=== PATIENT | female | born 1995 | race Asian ===

== ENCOUNTER 2024-02-20 08:32 | Emergency (ER) | payer OTHER, SELFPAY ==
--- NOTE | 2024-02-20 08:56 | ED.GENADULT ---
HPI - General Adult General Chief complaint: Urogenital-Female Stated complaint: Uti Symptoms Source: patient, RN notes reviewed and old records reviewed Mode of arrival: ambulatory Limitations: no limitations History of Present Illness HPI narrative: 28-year-old female presents to [facility] with complaints lower abdominal pain and urinary odor that started 3 weeks ago. Patient denies any other symptoms. Patient denies vaginal discharge. Patient denies concerns for STDs. Related Data Home Medications Medication Instructions Recorded Confirmed buspirone 7.5 mg tablet 7.5 mg PO BID 08/31/23 08/31/23 clindamycin phosphate 1 % topical 1 applic topical DAILY 08/31/23 08/31/23 solution dextroamphetamine-amphetamine ER 10 mg PO DAILY 08/31/23 08/31/23 10 mg 24hr capsule,extend release ergocalciferol (vitamin D2) 1,250 1,250 mcg PO WEEKLY 08/31/23 08/31/23 mcg (50,000 unit) capsule levonorgestrel-ethinyl estradiol 1 tablet PO DAILY 08/31/23 08/31/23 0.1 mg-20 mcg tablet (Vienva) tretinoin 0.025 % topical cream 1 applic topical QHS 08/31/23 08/31/23 Allergies Allergy/AdvReac Type Severity Reaction Status Date / Time No Known Allergies Allergy Unverified 08/31/23 13:28 Review of Systems Constitutional: Constitutional: Reports no additional constitutional complaints, Denies body ache(s), Denies chills, Denies fatigue, Denies fever(s) and Denies headache(s) Eyes: Eyes: Reports no additional eye complaints and Denies blurry vision ENT: Reports system reviewed and no additional complaints, except as documented, Denies vertigo, Denies dizziness, Denies ear discharge, Denies otalgia, Denies facial pain, Denies headache(s), Denies nasal congestion, Denies nasal discharge, Denies sinus pain, Denies sinus pressure and Denies sore throat Cardiovascular: Cardiovascular: Reports no additional cardiovascular complaints, Denies chest pain, Denies chest pain at rest, Denies rapid heart rate and Denies dyspnea Respiratory: Respiratory: Reports no additional respiratory complaints, Denies chest congestion, Denies cough, Denies pain on inspiration, Denies pain with cough and Denies dyspnea Gastrointestinal: Gastrointestinal: Denies abdominal pain, Denies diarrhea, Denies nausea and Denies vomiting Integumentary/Breasts: Skin/Breast: Denies rash Neurologic: Reports system reviewed and no additional complaints, except as documented, Denies vertigo, Denies dizziness and Denies headache(s) Endocrine: Endocrine: Denies fatigue PMFSH Past Medical History Medical History Acne ADHD Anxiety Depression Dyslipidemia Prediabetes Seasonal allergies Vitamin D deficiency Family History Family History Father Hypertension Mother Asthma Grandparent Hypertension Diabetes mellitus Cerebrovascular accident Bladder cancer Social History Social History Smoking status: Never smoker Alcohol intake: current Substance use: never Substance use type: does not use Lack of Transportation: No Lack of Food: Never True Current Housing: I Have Housing Concerned About Future Housing: No Difficulty Paying Gas/Electric Bills: No Difficulty Paying for Meds: No Currently Unemployed: No Education: Bachelor's Degree Difficulty w/ Childcare or Family Care: No Living arrangements: with family Occupation/Education: student Gender identity (if verbalized by the patient): Female Agree to blood products: Yes Comments At the time of my signature, I reviewed and agree with the nursing past medical, surgical, social, and family history. There is no relevant family history pertinent to the patient complaint. Exam Const: General: cooperative, healthy appearing, no acute distress and well nourished Nutritional Appearance: well nourished Orientation/
[2024-02-20 09:08] VITALS: BP 131/87; PULSE 69; RESP 16; TEMP 36.6; O2SAT 100
== END 2024-02-20 09:58 | disposition home or self-care (01) ==
PROVIDERS: Emergency Provider Registered Nurse; PCP Family Medicine
DX: R10.30 Lower abdominal pain, unspecified (principal); E78.5 Hyperlipidemia, unspecified; R73.03 Prediabetes; F90.9 Attention-deficit hyperactivity disorder, unspecified type; F41.9 Anxiety disorder, unspecified; F32.A Depression, unspecified; E55.9 Vitamin D deficiency, unspecified
CPT/HCPCS: 81003; 87086; 99213; G0463